=== PATIENT | female | born 1970 | race African-American/Black ===

== ENCOUNTER 2019-05-27 09:35 | Emergency (ER) | payer OTHER ==
[~2019-05-27] VITALS: Ht 154.9 cm; Wt 72.6 kg
[2019-05-27] MEDS ORDERED: TOPROL XL50 M1 (09:52)
== END 2019-05-27 19:50 | disposition home or self-care (01) ==
LOC: ER 09:35
DX: K57.92 Diverticulitis of intestine, part unspecified, without perforation or abscess without bleeding (principal)

== ENCOUNTER 2019-07-18 10:15 | Inpatient (IN) | payer OTHER ==
[~2019-07-18] VITALS: Ht 154.9 cm; Wt 72.6 kg
[~2019-07-18 10:15] MED LIST: TOPROL XL25 M1 PO
[2019-07-18] MEDS ORDERED: AMBIEN10 MG PO (12:52)
[2019-07-25] MEDS ORDERED: PERCOCET 5-3251 EACH PO (09:26)
[2019-07-25] MEDS ORDERED: INTESTINEX680 M1 PO (09:26)
[2019-07-25] MEDS ORDERED: PRILOSEC OTC20 MG PO (09:26)
== END 2019-07-25 18:10 | disposition home or self-care (01) | DRG 331 ==
LOC: ADM 10:15 → SURH 07-23 05:35 → O/R 07-23 05:35 → SURH 07-23 07:00 → EDSTATUS 07-23 10:15 → CIR.AMB 07-23 10:15 → SURH 07-23 10:15
PROVIDERS: ADMIT Surgery
PROC: 0UT14ZZ Resection of Left Ovary, Percutaneous Endoscopic Approach (ICD-10-PCS; 2019-07-23)
PROC: 0DJD8ZZ Inspection of Lower Intestinal Tract, Via Natural or Artificial Opening Endoscopic (ICD-10-PCS; 2019-07-23)
PROC: 0DTM4ZZ Resection of Descending Colon, Percutaneous Endoscopic Approach (ICD-10-PCS; principal; 2019-07-23 07:00)
DX: K57.20 Diverticulitis of large intestine with perforation and abscess without bleeding (principal); N73.6 Female pelvic peritoneal adhesions (postinfective); N83.8 Other noninflammatory disorders of ovary, fallopian tube and broad ligament

== ENCOUNTER 2020-02-09 14:57 | Emergency (ER) | payer OTHER ==
[~2020-02-09] VITALS: Ht 154.9 cm; Wt 72.6 kg
[~2020-02-09 14:57] MED LIST changes: +AMBIEN10 MG PO; +INTESTINEX680 M1 PO; +PERCOCET 5-3251 EACH PO; +PRILOSEC OTC20 MG PO
== END 2020-02-09 22:40 | disposition home or self-care (01) ==
LOC: ER 14:57
DX: R10.31 Right lower quadrant pain (principal)

== ENCOUNTER 2020-09-21 06:00 | Day surgery (SDC) | payer OTHER | END 2020-09-21 11:05 | disposition home or self-care (01) | LOC: AMB-ENDOS 06:00 | PROVIDERS: ATTEND Surgery | DX: K62.4 Stenosis of anus and rectum (principal); Z20.822 Contact with and (suspected) exposure to COVID-19 ==

== ENCOUNTER 2020-11-09 05:47 | Day surgery (SDC) | payer OTHER ==
[2020-11-09] MEDS ORDERED: FLAGYL500MG PO (09:27)
[2020-11-09] MEDS ORDERED: CIPRO500 MG PO (09:27)
== END 2020-11-09 10:55 | disposition home or self-care (01) ==
LOC: AMB-ENDOS 05:47
PROVIDERS: ATTEND Surgery
DX: K62.4 Stenosis of anus and rectum (principal); Z20.822 Contact with and (suspected) exposure to COVID-19

== ENCOUNTER 2021-05-24 06:52 | Day surgery (SDC) | payer OTHER ==
[~2021-05-24 06:52] MED LIST changes: +CIPRO500 MG PO; +FLAGYL500MG PO
== END 2021-05-24 11:00 | disposition home or self-care (01) ==
LOC: AMB-ENDOS 06:52
PROVIDERS: ATTEND Surgery
DX: K62.4 Stenosis of anus and rectum (principal); Z20.822 Contact with and (suspected) exposure to COVID-19

== ENCOUNTER 2022-08-26 06:16 | Day surgery (SDC) | payer OTHER | END 2022-08-26 10:50 | disposition home or self-care (01) | LOC: AMB-ENDOS 06:16 | PROVIDERS: ATTEND Surgery | DX: K57.30 Diverticulosis of large intestine without perforation or abscess without bleeding (principal); Z88.0 Allergy status to penicillin; Z20.822 Contact with and (suspected) exposure to COVID-19 ==